=== PATIENT | female | born 1930 | race Caucasian/White ===

== ENCOUNTER 2017-02-05 19:15 | Inpatient (IN) ==
[2017-02-05] MEDS ORDERED: 0.9 % SODIUM CHLORIDE 1,000 ML IV ONE ×2 (20:20→21:47)
[2017-02-05 20:49] LABS: Basophils # (Auto) 0 K/mcL (0.0-0.3); Basophils % (Auto) 0 % (0.0-2.0); Eosinophils # (Auto) 0 K/mcL (0.0-0.7); Eosinophils % (Auto) 0.2 % (0.0-7.0); Lymphocytes # (Auto) 0.8 K/mcL (1.5-4.8); Lymphocytes % (Auto) 3.9 % (15.5-49.0); Mean Cell Volume 88.8 fL (80.0-100.0); Mean Corpuscular HGB Conc 33.4 g/dL (31.0-36.0); Mean Corpuscular Hemoglobin 29.7 pg (26.0-34.0); Monocytes # (Auto) 0.4 K/mcL (0.1-0.9); Monocytes % (Auto) 1.9 % (1.0-12.0); Platelet Count 269 K/mcL (140-440); RBC 4.47 M/mcL (4.00-5.20); Red Cell Distribution Width 15.5 % (11.5-14.5)
[2017-02-05 21:09] LABS: ALT/SGPT 14 U/l (0-40); Albumin/Globulin Ratio 1.2 (1.0-2.3); Alkaline Phosphatase 35 U/L (39-117); Blood Urea Nitrogen 23 mg/dl (8-23)
[2017-02-05] MEDS ORDERED: ONDANSETRON 4 MG/2 ML VIAL ONE ×2 (21:14→21:15)
[2017-02-05] MEDS ORDERED: HYDROmorphone 2 MG/ML SYRINGE ONE (21:14)
[2017-02-05] MEDS ORDERED: HYDROmorphone 2 MG/ML SYRINGE IV ONE (21:15)
[2017-02-05] MEDS ORDERED: ACETAMINOPHEN 325 MG TABLET PO ONE (21:15)
[2017-02-05] MEDS ORDERED: PIPERACILLIN SODIUM/TAZOBACTAM 3.375 GM in DEXTROSE 5% IN WATER 50 ML IV ONE (21:33)
[2017-02-05] MEDS ORDERED: PIPERACILLIN SODIUM/TAZOBACTAM 3.375 GM VIAL IV ONE (21:45)
[2017-02-05 22:12] LABS: Appearance,Urine HAZY; Bacteria,Urine MANY /hpf (0); Bilirubin,Urine NEG (NEG); Color,Urine AMBER; Glucose,Urine (UA) NEGATIVE (NEG); Leukocyte Esterase,Urine 75 /uL (NEG); Mucus,Urine MOD /hpf (0); Nitrate,Urine NEG (NEG); Protein,Urine 100 mg/dL (NEG); Specific Gravity,Urine 1.017 (1.000-1.035); Urine Blood 0.2 mg/dL (<0.03); Urine Budding Yeast FEW /hpf (0); Urine Hyaline Cast 12 /lpf (0-2); Urine RBC 7 /hpf (0-1); Urine Squamous Epithelial Cell 1 /hpf (0-4); Urine Transitional Epi Cells 1 /hpf (0-2); Urine WBC 46 /hpf (0-4)
[2017-02-05] MEDS ORDERED: HYDROmorphone 2 MG/ML SYRINGE IV PRN (22:30)
--- NOTE | 2017-02-05 23:03 | General Surg History&Physical ---
History of Present Illness Patient information: Note initiated : 02/05/17 at 11:02 pm Service Date, if different from initiated Date: [] Patient: Ines Russell 87 y/o F admitted on for Abd cramping, weakness. Chief Complaint: [] HPI: Ms. Russell is a 87 year old F who is visiting from [place]. She had acute onset of lower abdominal pain on Wednesday with associated nausea. The pain initially was in her left lower quadrant and spread throughout her abdomen. She became much worse on and she developed some diarrhea. She took Pepto-Bismol and the diarrhea ceased. Nausea persisted but she did not have any vomiting and she has not had rectal bleeding. She was seen in the emergency room with a temperature of 101.[address] of the abdomen shows sigmoid colon diverticulitis with a small microperforation and small amount of pericolonic fluid without abscess formation. She is admitted and will be treated with antibiotics. She will have follow-up CT in 3 days as long as she improves. If she worsens she will have urgent segmental colectomy with colostomy. Patient is informed of this and she agrees. Review of Systems - Constitutional fever(s), headache(s), night sweats, weight loss - EENT Nose, mouth and throat: abnormal hearing, disequilibrium, dizziness, no headache (s) - Cardiovascular dyspnea on exertion, no chest pain at rest, no chest pain with activity, no palpatations, no rapid heart rate, no syncope - Respiratory no cough, no dyspnea, no wheezing, no pain on inspirtation, no chest congestion - Gastrointestinal abdominal pain, change in stool character, nausea, no heartburn, no hematochezia , no vomiting - Genitourinary Genitourinary: nocturia, urinary incontinence, no dysuria - Musculoskeletal arthralgias, back pain, joint swelling, radiating pain into limb, no muscle weakness - Integumentary no changing lesions, no new lesions, no pruritus, no rash - Neurological abnormal gait, no confusion, no dizziness, no headache(s), no syncope, no weakness - Psychiatric no anxiety, no confusion, no depression - Endocrine fatigue, no palpitations, no polydipsia, no polyuria - Hematologic/Lymphatic no easy bleeding, no easy bruising, no lymphadenopathy - Allergic/Immunologic no tongue swelling, no throat swelling, no uticaria, no wheezing, no lip swelling Past History Past medical history: Diabetes mellitus type 2 Degenerative joint disease Hypertension Past surgical history: Eye surgery for macular degeneration Parathyroidectomy Past family history: Not applicable Past social history: Visiting from [place] Smokes one third pack of cigarettes per day Denies alcohol use Denies drug use Medications and Allergies Home Medications Medication Instructions Recorded Confirmed Type Alendronate Sodium [Fosamax] 70 mg PO WEEKLY 02/05/17 02/05/17 History Allopurinol [Zylopriim] 300 mg PO DAILY 02/05/17 02/05/17 History Aspirin [Lizette Chewable Aspirin] 81 mg PO DAILY 02/05/17 02/05/17 History Atorvastatin [Lipitor] 10 mg PO HS 02/05/17 02/05/17 History Calcium Carbonate [Tums] 1,000 mg CHEWED TID 02/05/17 02/05/17 History Enalapril/Hydrochlorothiazide 1 tablet PO DAILY 02/05/17 02/05/17 History [Enalapril-Hctz 10-25 mg Tablet] Ergocalciferol (Vitamin D2) 2,000 unit PO DAILY 02/05/17 02/05/17 History [Vitamin D2] Fenofibrate [Lipofen] 160 mg PO DAILY 02/05/17 02/05/17 History Multivitamin [Multi-Day Vitamins] 1 each PO DAILY 02/05/17 02/05/17 History Naproxen (Pp) [Aleve (Pp)] 220 mg PO QIDP PRN 02/05/17 02/05/17 History amLODIPine [Norvasc] 10 mg PO DAILY 02/05/17 02/05/17 History metFORMIN HCL [Glucophage] 500 mg PO TID 02/05/17 02/05/17 History Allergies Allergy/AdvReac Type Severity Reaction Status Date / Time No Known Drug Allergies Allergy Unverified 02/05/17 19:16 Exam Temp Pulse Resp BP Pulse Ox 98.4 F 80 26 H 142/98 94 02/05/17 22:24 02/05/17 22:55 02/05/17 22:55 02/05/17 21:32 02/05/17 22:55 - General physical appearance well developed, well nourished, no distress, moderate distress, moderate pain - Eyes PERRL, normal ocular movement - ENT normal pinna, normal nares, normal mucosa, no hearing loss, no congestion, decreased hearing, other (Bilateral hearing aids) - Head Head exam IM: Present: atraumatic, normal inspection, normocephalic - Neck no masses, no bruits, trachea midline, no lymphadectomy, no venous distension - Cardiovascular Cardiovascular exam IM: Present: irregular rhythm, +S1, +S2, tachycardia. Absent: JVD - Respiratory normal expansion, normal respiratory effort, clear to percussion, clear to auscultation - Abdomen Abdomen: Present: soft, non tender, bowel sounds, distended (Distended abdomen with normal active bowel sounds; diffuse tenderness of lower abdomen; much more prominent in left lower quadrant with guarding and rebound; no upper abdominal masses) Hernia: Present: none - Genitourinary Present: normal external genitalia - Integumentary Present: no rash, no growths, no abnormal pigmentation - Neurologic Present: normal coordination, normal sensation - Musculoskeletal Present: normal gait, normal posture - Psychiatric Present: oriented to time, oriented to person, oriented to place, speech is normal, memory intact Assessment and Plan (1) Acute diverticulitis of intestine Zosyn 3.375 g IV every 6 hours Flagyl 500 mg IV every 6 hours N.p.o. except for ice chips IV analgesics as needed to control pain Follow-up CT on Wednesday if patient continues to improve Urgent laparotomy with sigmoid colon resection and colostomy if symptoms worsen Status: Acute (2) Hypertension Hold antihypertensives unless patient develops significant hypertension. Status: Acute (3) Diabetes mellitus type 2 in obese Routine Accu-Cheks with sliding scale Humalog coverage every 6 hours Hold metformin at this time Status: Acute
[2017-02-05] MEDS ORDERED: ONDANSETRON 4 MG/2 ML VIAL IV PRN (23:48)
[2017-02-06] MEDS: 0.9 % SODIUM CHLORIDE 1,000 ML IV SCH ×2 (00:05→21:55)
[2017-02-06] MEDS: PIPERACILLIN SODIUM/TAZOBACTAM 3.375 GM in DEXTROSE 5% IN WATER 50 ML IV SCH ×2 (00:47→06:06)
[2017-02-06] MEDS ORDERED: PIPERACILLIN SODIUM/TAZOBACTAM 3.375 GM VIAL IV ONE ×2 (02:07→05:19)
[2017-02-06] MEDS: HYDROmorphone 2 MG/ML SYRINGE IV PRN ×3 (02:40→17:23)
[2017-02-06] MEDS ORDERED: HYDROmorphone 2 MG/ML SYRINGE ONE ×2 (02:43→06:05)
[2017-02-06] MEDS: 0.9 % SODIUM CHLORIDE 10 ML SYRINGE IV SCH ×3 (06:06→20:36)
[2017-02-06] MEDS ORDERED: ONDANSETRON 4 MG/2 ML VIAL ONE (06:15)
[2017-02-06 06:17] LABS: Basophils # (Auto) 0 K/mcL (0.0-0.3); Basophils % (Auto) 0.1 % (0.0-2.0); Eosinophils # (Auto) 0.1 K/mcL (0.0-0.7); Eosinophils % (Auto) 0.4 % (0.0-7.0); Granulocytes % (Auto) 92.8 % (38.0-78.0); Lymphocytes # (Auto) 0.6 K/mcL (1.5-4.8); Lymphocytes % (Auto) 3.1 % (15.5-49.0); Mean Cell Volume 92.3 fL (80.0-100.0); Mean Corpuscular HGB Conc 32.8 g/dL (31.0-36.0); Mean Corpuscular Hemoglobin 30.3 pg (26.0-34.0); Monocytes # (Auto) 0.6 K/mcL (0.1-0.9); Monocytes % (Auto) 3.6 % (1.0-12.0); Platelet Count 217 K/mcL (140-440); RBC 3.72 M/mcL (4.00-5.20); Red Cell Distribution Width 16.4 % (11.5-14.5)
[2017-02-06 07:00] LABS: ALT/SGPT 12 U/l (0-40); Albumin/Globulin Ratio 1.1 (1.0-2.3); Alkaline Phosphatase 29 U/L (39-117); Bilirubin,Direct 0.7 mg/dL (0.0-0.3); Blood Urea Nitrogen 20 mg/dl (8-23); Gamma Glutamyl Transpeptidase 13 U/L (5-36); Magnesium 1.4 mg/dL (1.6-2.5); Uric Acid 3.3 mg/dL (2.5-8.0)
[2017-02-06] MEDS ORDERED: ACETAMINOPHEN 500 MG/50 ML BOTTLE IV PRN (07:08)
--- NOTE | 2017-02-06 12:13 | XRay Report ---
CLINICAL INFORMATION: Preop COMPARISON: None. FINDINGS: The heart is mildly enlarged. Mediastinum is unremarkable. The pulmonary vessels are mildly distended and the upper lobe regions. Minimal diffuse interstitial edema noted. No infiltrates. No effusions IMPRESSION: Mild CHF or volume overload Interpreted and Authenticated by: Reynaldo Tiwari 02/06/17
[2017-02-06] MEDS ORDERED: DEXTROSE 31 GM ORAL.SUSP PO PRN (13:22)
[2017-02-06] MEDS ORDERED: DEXTROSE 50% 50 ML VIAL IV PRN (13:22)
[2017-02-06] MEDS: PIPERACILLIN SODIUM/TAZOBACTAM 2.25 GM in DEXTROSE 5% IN WATER 50 ML IV SCH ×2 (13:26→17:24)
--- NOTE | 2017-02-06 14:03 | Cat Scan Report ---
CLINICAL INFORMATION: Lower abdominal pain COMPARISON: None. TECHNIQUE: IV contrast was withheld due to elevated creatinine. 2.5 mm helical slices were obtained from the mid heart through the subtrochanteric regions. Following reconstruction, 2.5 mm sagittal, coronal and axial reformatted images were processed and reviewed at bone, lung and soft tissue windows. FINDINGS: Lung bases show no abnormality. No effusion. The visualized heart is minimally enlarged. Images through the abdomen show the noncontrasted liver to be normal. A 17 mm solitary stone in the gallbladder neck. The gallbladder and bile ducts are otherwise normal: CBD is 5 mm. A 4.2 cm cyst in the anterior cortex mid left kidney and a 2.4 cm cyst lateral cortex of the mid right kidney are appreciated. There is mild atrophy of the right kidney and mild compensatory hypertrophy of the left kidney. Both noncontrasted adrenal glands, spleen, pancreas and aorta are normal in size, configuration and attenuation without focal lesion. Images through the pelvis show post menopausal uterus which is normal in size (6 x 4 cm) and leftward position.. Urinary bladder is normal. Severe diverticulitis of a 10 cm segment of mid sigmoid colon is appreciated. Moderate fluid in the right perisigmoid fat with extraluminal gas suggesting perforation with inflamed diverticuli. There is small amounts of free air in the nondependent anterior mesenteric cavity. Bone windows show moderate L2 compression fracture which is likely chronic IMPRESSION: 1. Severe diverticulitis involving a 10 cm segment of mid sigmoid colon. There is moderate free fluid in the right perisigmoid fat with extraluminal air compatible with phlegmon and microperforation. A 11 cm collection of free fluid also noted deep true pelvis. 2. 17 mm solitary stone in the gallbladder. Gallbladder and bile ducts are otherwise normal 3. Moderate L2 compression fracture is likely chronic 4. Abnormality of the right kidney with compensatory hypertrophy of the left kidney Interpreted and Authenticated by: Reynaldo Tiwari 02/06/17
[2017-02-06] MEDS: metroNIDAZOLE 500 MG/100 ML BAG IV SCH ×2 (14:10→18:03)
[2017-02-06] MEDS: INSULIN LISPRO 1 UNIT/0.01 ML UNIT SQ SCH ×2 (17:09→20:36)
[2017-02-07] MEDS: PIPERACILLIN SODIUM/TAZOBACTAM 2.25 GM in DEXTROSE 5% IN WATER 50 ML IV SCH ×4 (00:29→17:34)
[2017-02-07] MEDS: metroNIDAZOLE 500 MG/100 ML BAG IV SCH ×5 (01:30→23:31)
[2017-02-07] MEDS: 0.9 % SODIUM CHLORIDE 10 ML SYRINGE IV SCH ×3 (05:35→20:34)
[2017-02-07 06:27] LABS: Basophils # (Auto) 0 K/mcL (0.0-0.3); Basophils % (Auto) 0 % (0.0-2.0); Eosinophils # (Auto) 0 K/mcL (0.0-0.7); Eosinophils % (Auto) 0.1 % (0.0-7.0); Granulocytes % (Auto) 92.2 % (38.0-78.0); Lymphocytes # (Auto) 0.6 K/mcL (1.5-4.8); Lymphocytes % (Auto) 3.6 % (15.5-49.0); Mean Cell Volume 93.3 fL (80.0-100.0); Mean Corpuscular HGB Conc 32.8 g/dL (31.0-36.0); Mean Corpuscular Hemoglobin 30.6 pg (26.0-34.0); Monocytes # (Auto) 0.7 K/mcL (0.1-0.9); Monocytes % (Auto) 4.1 % (1.0-12.0); Platelet Count 224 K/mcL (140-440); RBC 3.68 M/mcL (4.00-5.20)
[2017-02-07 07:03] LABS: ALT/SGPT 11 U/l (0-40); Albumin 2.6 gm/dL (3.2-5.2); Albumin/Globulin Ratio 0.9 (1.0-2.3); Alkaline Phosphatase 33 U/L (39-117); Bilirubin,Direct 0.5 mg/dL (0.0-0.3); Blood Urea Nitrogen 26 mg/dl (8-23); Gamma Glutamyl Transpeptidase 11 U/L (5-36); Magnesium 1.7 mg/dL (1.6-2.5)
[2017-02-07] MEDS: INSULIN LISPRO 1 UNIT/0.01 ML UNIT SQ SCH ×4 (07:57→20:34)
--- NOTE | 2017-02-07 14:22 | General Surgery Progress Note ---
Subjective Patient reports: feels better, pain is less, flatus, bowel movement, fever Narrative: Note initiated : 02/07/17 at 2:19 pm Service Date, if different from initiated Date: [] Patient: Ines Russell 87 y/o F admitted on 02/05/17 for Abd cramping, weakness. Chief Complaint: [Patient is better. She states that she feels much better than yesterday. She has low-grade temperature elevation and her white blood count is still elevated. She denies nausea. She complains of irritation from her catheter. Her chemistry panel shows elevation of BUN and creatinine. Her urine output has decreased.] Objective Temp Pulse Resp BP Pulse Ox 98.4 F 88 20 131/86 93 02/07/17 11:53 02/07/17 03:44 02/07/17 11:53 02/07/17 11:53 02/07/17 11:53 - Additional Data Intake & Output - Last 24 hours: Intake & Output 02/05/17 02/06/17 02/07/17 02/08/17 05:59 05:59 05:59 05:59 Intake Total 2049 1600 / 1600 250 / 250 Output Total 50 / 50 875 / 875 200 / 200 Balance -1999 725 / 725 50 / 50 Weight 172 lb - General physical appearance other (Mild pain with moderate distention) - Eyes PERRL - ENT no congestion - Neck no venous distension - Respiratory normal respiratory effort, clear to auscultation - Cardiovascular Cardiovascular exam: Present: normal rate and rhythm, RRR, +S1, +S2, tachycardia. Absent: JVD - Abdomen tender (Mild diffuse tenderness of lower abdomen but much less guarding and no rebound.) - Integumentary no rash, no growths, no abnormal pigmentation - Neurologic normal coordination, normal sensation - Psychiatric oriented to time, oriented to person, oriented to place, speech is normal, memory intact - Labs 02/07/17 05:25 02/07/17 05:25 Diabetes panel 02/07/17 Range/Units 05:25 Sodium 141 (133-145) mmol/L Potassium 3.6 (3.3-5.1) mmol/L Chloride 106 (96-108) mmol/L Carbon Dioxide 19 L (22-30) mmol/L BUN 26 H (8-23) mg/dl Creatinine 1.5 H (0.6-1.1) mg/dl Glucose 150 H (70-105) mg/dL Calcium 8.5 L (8.6-10.4) mg/dl AST 12 (0-37) U/l ALT 11 (0-40) U/l Alkaline Phosphatase 33 L (39-117) U/L Total Protein 5.6 L (5.9-8.4) gm/dL Albumin 2.6 L (3.2-5.2) gm/dL Triglycerides 129 (<150) mg/dl Calcium panel 02/07/17 Range/Units 05:25 Calcium 8.5 L (8.6-10.4) mg/dl Phosphorus 2.1 L (2.7-4.5) mg/dL Albumin 2.6 L (3.2-5.2) gm/dL Pituitary panel 02/07/17 Range/Units 05:25 Sodium 141 (133-145) mmol/L Potassium 3.6 (3.3-5.1) mmol/L Chloride 106 (96-108) mmol/L Carbon Dioxide 19 L (22-30) mmol/L BUN 26 H (8-23) mg/dl Creatinine 1.5 H (0.6-1.1) mg/dl Glucose 150 H (70-105) mg/dL Calcium 8.5 L (8.6-10.4) mg/dl Adrenal panel 02/07/17 Range/Units 05:25 Sodium 141 (133-145) mmol/L Potassium 3.6 (3.3-5.1) mmol/L Chloride 106 (96-108) mmol/L Carbon Dioxide 19 L (22-30) mmol/L BUN 26 H (8-23) mg/dl Creatinine 1.5 H (0.6-1.1) mg/dl Glucose 150 H (70-105) mg/dL Calcium 8.5 L (8.6-10.4) mg/dl Total Bilirubin 1.0 (0.0-1.0) mg/dL AST 12 (0-37) U/l ALT 11 (0-40) U/l Alkaline Phosphatase 33 L (39-117) U/L Total Protein 5.6 L (5.9-8.4) gm/dL Albumin 2.6 L (3.2-5.2) gm/dL Assessment and Plan (1) Acute diverticulitis of intestine Status: Acute Assessment and plan: Increase IV fluids 125 cc/h Potassium phosphate [address] of abdomen and pelvis with IV contrast in the morning for follow-up of the inflammatory process in her pelvis Current Visit: Yes (2) Hypertension Status: Acute Assessment and plan: Blood pressures well controlled without addition of antihypertensives Current Visit: Yes (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
[2017-02-07] MEDS: 0.9 % SODIUM CHLORIDE 1,000 ML IV SCH ×2 (15:15→23:00)
[2017-02-07] MEDS ORDERED: POTASSIUM PHOSPHATE 40 MEQ in DEXTROSE 5% IN WATER 500 ML IV ONE ×2 (15:15→20:00)
[2017-02-07 16:06] LABS: ALT/SGPT 10 U/l (0-40); Albumin 2.4 gm/dL (3.2-5.2); Albumin/Globulin Ratio 0.8 (1.0-2.3); Alkaline Phosphatase 31 U/L (39-117); Bilirubin,Direct 0.4 mg/dL (0.0-0.3); Blood Urea Nitrogen 28 mg/dl (8-23); Gamma Glutamyl Transpeptidase 12 U/L (5-36); Magnesium 1.8 mg/dL (1.6-2.5); Uric Acid 4.2 mg/dL (2.5-8.0)
[2017-02-07] MEDS: HYDROmorphone 2 MG/ML SYRINGE IV PRN ×2 (17:33→23:31)
[2017-02-08] MEDS: PIPERACILLIN SODIUM/TAZOBACTAM 2.25 GM in DEXTROSE 5% IN WATER 50 ML IV SCH ×4 (00:35→17:53)
[2017-02-08] MEDS: HYDROmorphone 2 MG/ML SYRINGE IV PRN (04:28)
[2017-02-08] MEDS: 0.9 % SODIUM CHLORIDE 10 ML SYRINGE IV SCH ×3 (06:17→20:27)
[2017-02-08 06:33] LABS: Basophils # (Auto) 0 K/mcL (0.0-0.3); Basophils % (Auto) 0 % (0.0-2.0); Eosinophils # (Auto) 0.2 K/mcL (0.0-0.7); Eosinophils % (Auto) 1.5 % (0.0-7.0); Granulocytes % (Auto) 87.6 % (38.0-78.0); Lymphocytes # (Auto) 0.6 K/mcL (1.5-4.8); Lymphocytes % (Auto) 4.9 % (15.5-49.0); Mean Cell Volume 92.4 fL (80.0-100.0); Mean Corpuscular Hemoglobin 30.5 pg (26.0-34.0); Monocytes # (Auto) 0.8 K/mcL (0.1-0.9); Platelet Count 281 K/mcL (140-440); RBC 3.62 M/mcL (4.00-5.20); Red Cell Distribution Width 16.7 % (11.5-14.5)
[2017-02-08] MEDS: metroNIDAZOLE 500 MG/100 ML BAG IV SCH ×4 (07:00→23:10)
[2017-02-08 07:29] LABS: ALT/SGPT 10 U/l (0-40); Albumin 2.6 gm/dL (3.2-5.2); Albumin/Globulin Ratio 0.9 (1.0-2.3); Alkaline Phosphatase 52 U/L (39-117); Bilirubin,Direct 0.3 mg/dL (0.0-0.3); Blood Urea Nitrogen 24 mg/dl (8-23); Gamma Glutamyl Transpeptidase 13 U/L (5-36); Magnesium 1.7 mg/dL (1.6-2.5); Uric Acid 4.4 mg/dL (2.5-8.0)
[2017-02-08] MEDS: INSULIN LISPRO 1 UNIT/0.01 ML UNIT SQ SCH ×4 (08:07→20:26)
[2017-02-08] MEDS ORDERED: IOPAMIDOL 100 ML BOTTLE IV ONE (08:46)
--- NOTE | 2017-02-08 09:05 | Cat Scan Report ---
CLINICAL INFORMATION: Reason for Exam:follow-up of diverticular abscess. COMPARISON: 02/05/17 TECHNIQUE: Following oral contrast and the injection of intravenous contrast the patient was scanned during the portal venous phase from the diaphragm through the symphysis pubis. Sagittal and coronal reformats were created.. FINDINGS: The lung bases are clear. The liver and spleen are normal in size and homogeneous. There is a 2 cm stone in the fundus the gallbladder. The meza not thickened or inflamed and the bile ducts are nondilated. There is no mass or inflammation the pancreas. The adrenals are normal and symmetric. There are cysts in both kidneys. There is atrophy of the right kidney. No kidney stone or hydronephrosis are present in either kidney. Aorta is normal in caliber. There is a moderate amount plaque in the arteries throughout the abdomen and pelvis. Oral contrast passes through noninflamed small intestine to the distal ileum without obstruction. Some of the loops of proximal jejunum are borderline dilated. There is no abnormal distention of the colon. Patient still has acute diverticulitis of the mid to distal sigmoid colon. Adjacent to this inflamed segment of bowel there are loculated pockets of extraluminal gas and stranding of the adjacent fat. There is no significant abscess cavity. This has remained stable since 02/05/17. Patient still has ascites in the abdomen and pelvis. There is more fluid in the upper abdomen today than was previously area IMPRESSION: Stable acute diverticulitis with evidence of perforation and a phlegmon in the mid to distal sigmoid. Interpreted and Authenticated by: Edmundo Jarrett 02/08/17
[2017-02-08] MEDS: 0.9 % SODIUM CHLORIDE 1,000 ML IV SCH ×3 (11:00→22:15)
--- NOTE | 2017-02-08 16:55 | General Surgery Progress Note ---
Subjective Patient reports: feels better, pain is less, flatus, bowel movement, fever Narrative: Note initiated : 02/08/17 at 4:52 pm Service Date, if different from initiated Date: [] Patient: Ines Russell 87 y/o F admitted on 02/05/17 for Abd Cramping, Weakness/Diverticulitis. Chief Complaint: [Patient continues to improve. Her pain is much better and her abdominal distention is less. She has had flatus and bowel movement. CT scan shows a stable inflammatory process without significant change since 2016. There is no increase in the free air and there is no increase in the volume of fluid. There is no organized abscess. She has some fluid in her gutters but this may be related to her almost constant supine position. Her white blood count is down to 12.8.] Objective Temp Pulse Resp BP Pulse Ox 98.5 F 85 20 125/79 97 02/08/17 15:41 02/08/17 12:00 02/08/17 15:41 02/08/17 15:41 02/08/17 15:41 - Additional Data Intake & Output - Last 24 hours: Intake & Output 02/06/17 02/07/17 02/08/17 02/09/17 05:59 05:59 05:59 05:59 Intake Total 2049 1600 / 1600 1056 / 1056 1345 / 1345 Output Total 50 / 50 875 / 875 900 / 900 325 / 325 Balance -1999 725 / 725 156 / 156 1020 / 1020 Weight 172 lb 166 lb 166 lb - General physical appearance no distress, moderate pain - Eyes PERRL - ENT no congestion - Neck no venous distension - Respiratory normal respiratory effort, clear to auscultation - Cardiovascular Cardiovascular exam: Present: normal rate and rhythm, RRR, +S1, +S2. Absent: JVD - Abdomen soft, tender, bowel sounds (She has good bowel sounds and her distention is less. She has moderate tenderness but significantly improved from yesterday. She does not have guarding) - Integumentary no rash, no growths, no abnormal pigmentation - Neurologic normal coordination, normal sensation - Musculoskeletal other - Psychiatric oriented to time, oriented to person, oriented to place, speech is normal, memory intact - Labs 02/08/17 05:16 02/08/17 05:16 Diabetes panel 02/08/17 Range/Units 05:16 Sodium 139 (133-145) mmol/L Potassium 3.7 (3.3-5.1) mmol/L Chloride 106 (96-108) mmol/L Carbon Dioxide 18 L (22-30) mmol/L BUN 24 H (8-23) mg/dl Creatinine 1.1 (0.6-1.1) mg/dl Glucose 179 H (70-105) mg/dL Calcium 7.9 L (8.6-10.4) mg/dl AST 10 (0-37) U/l ALT 10 (0-40) U/l Alkaline Phosphatase 52 (39-117) U/L Total Protein 5.4 L (5.9-8.4) gm/dL Albumin 2.6 L (3.2-5.2) gm/dL Triglycerides 126 (<150) mg/dl Calcium panel 02/08/17 Range/Units 05:16 Calcium 7.9 L (8.6-10.4) mg/dl Phosphorus 4.0 (2.7-4.5) mg/dL Albumin 2.6 L (3.2-5.2) gm/dL Pituitary panel 02/08/17 Range/Units 05:16 Sodium 139 (133-145) mmol/L Potassium 3.7 (3.3-5.1) mmol/L Chloride 106 (96-108) mmol/L Carbon Dioxide 18 L (22-30) mmol/L BUN 24 H (8-23) mg/dl Creatinine 1.1 (0.6-1.1) mg/dl Glucose 179 H (70-105) mg/dL Calcium 7.9 L (8.6-10.4) mg/dl Adrenal panel 02/08/17 Range/Units 05:16 Sodium 139 (133-145) mmol/L Potassium 3.7 (3.3-5.1) mmol/L Chloride 106 (96-108) mmol/L Carbon Dioxide 18 L (22-30) mmol/L BUN 24 H (8-23) mg/dl Creatinine 1.1 (0.6-1.1) mg/dl Glucose 179 H (70-105) mg/dL Calcium 7.9 L (8.6-10.4) mg/dl Total Bilirubin 0.7 (0.0-1.0) mg/dL AST 10 (0-37) U/l ALT 10 (0-40) U/l Alkaline Phosphatase 52 (39-117) U/L Total Protein 5.4 L (5.9-8.4) gm/dL Albumin 2.6 L (3.2-5.2) gm/dL Assessment and Plan (1) Acute diverticulitis of intestine Status: Acute Assessment and plan: Continue present therapy Current Visit: Yes (2) Hypertension Status: Acute Assessment and plan: Blood pressures well controlled without addition of antihypertensives Current Visit: Yes (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
[2017-02-09] MEDS: PIPERACILLIN SODIUM/TAZOBACTAM 2.25 GM in DEXTROSE 5% IN WATER 50 ML IV SCH ×5 (00:13→23:55)
--- NOTE | 2017-02-09 01:08 | Emergency Department Note ---
Abdominal Pain HPI - General Chief Complaint: Abdominal Pain Stated Complaint: Abd cramping, weakness Time Seen by Provider: 02/05/17 20:19 Source: patient Mode of arrival: ambulatory Limitations: no limitations - History of Present Illness HPI Narrative: Note that this note is created retroactively. For unidentified causes or problems or inadvertent deletions, a note was not saved on this date and patient was admitted to the hospital. As I recall, the patient was visiting from [facility], and developed some significant pains in the last several days. On the day of admission her pain had become quite significantly worse as well as feeling quite poorly and not eating well in the past day or 2. She denied constipation or specific diarrhea or hematochezia or melena. She had had some chills but had not checked her temperature I believe. No known history of diverticular disease, cancer, polyps. She has not had vomiting, I believe but some nausea. - Related Data Home Medications Medication Instructions Recorded Confirmed Alendronate Sodium [Fosamax] 70 mg PO WEEKLY 02/05/17 02/05/17 Allopurinol [Zylopriim] 300 mg PO DAILY 02/05/17 02/05/17 Aspirin [Lizette Chewable Aspirin] 81 mg PO DAILY 02/05/17 02/05/17 Atorvastatin [Lipitor] 10 mg PO HS 02/05/17 02/05/17 Calcium Carbonate [Tums] 1,000 mg CHEWED TID 02/05/17 02/05/17 Enalapril/Hydrochlorothiazide 1 tablet PO DAILY 02/05/17 02/05/17 [Enalapril-Hctz 10-25 mg Tablet] Ergocalciferol (Vitamin D2) 2,000 unit PO DAILY 02/05/17 02/05/17 [Vitamin D2] Fenofibrate [Lipofen] 160 mg PO DAILY 02/05/17 02/05/17 Multivitamin [Multi-Day Vitamins] 1 each PO DAILY 02/05/17 02/05/17 Naproxen (Pp) [Aleve (Pp)] 220 mg PO QIDP PRN 02/05/17 02/05/17 amLODIPine [Norvasc] 10 mg PO DAILY 02/05/17 02/05/17 metFORMIN HCL [Glucophage] 500 mg PO TID 02/05/17 02/05/17 Allergies Allergy/AdvReac Type Severity Reaction Status Date / Time No Known Drug Allergies Allergy Unverified 02/05/17 19:16 Review of Systems Review of Systems: I believe she indicated that she did not have passing out episodes but maybe some minor headaches. No specific chest pains or palpitations. No shortness of breath or wheezing. However she does smoke and have some chronic morning coughing. Prior to the onset of her problems mentioned above in the HPI, she did not have problems of nausea, vomiting, diarrhea, constipation, or blood in her stools. No specific problems with urination or dysuria. Minimal or rare swelling of her lower extremities. Abdominal Pain PMH - Past Medical History Medical history: Denies: asthma, atrial fibrillation, CHF, coronary artery disease, CVA, diabetes - Social History Smoking status: Current every day smoker Alcohol use: Reports: None Physical Exam - General Limitations: no limitations General appearance: alert, in no apparent distress, other (moderately uncomfortable to change positions in bed.) - Head Head exam: atraumatic, normocephalic - Eye Eye exam: Present: normal appearance, PERRL - Neck Neck exam: Present: trachea midline. Absent: tenderness, lymphadenopathy - Respiratory Respiratory exam: Present: normal lung sounds bilaterally. Absent: respiratory distress, wheezes, stridor - Cardiovascular Cardiovascular exam: Present: regular rate, normal rhythm - Abdominal Exam Abdominal exam: Present: soft, distention (mildly.), tenderness (moderate tenderness, greatest in the RLQ.), guarding, rebound. Absent: organomegaly - Extremities Exam Extremities exam: Absent: pedal edema - Neurological Exam Neurological exam: Present: alert, oriented X3 - Psychiatric Psychiatric exam: Present: normal affect - Skin Skin exam: Present: warm, dry Course Course Narrative: During the course of her stay in the emergency room, she developed a fever and tachycardia. Her abdominal pain was rather significant to severe and CT scan was obtained which demonstrated diverticulitis with a rupture and probable abscess. She was given antibiotics and was transferred to inpatient care after consultation with general surgeon. She met the criteria for SIRS based on these findings and concerns. Vital Signs Temperature 98.4 F 02/05/17 19:16 Pulse Rate 115 H 02/05/17 19:16 Respiratory Rate 17 02/05/17 19:16 Blood Pressure 116/68 02/05/17 19:16 Pulse Oximetry (%) 97 02/05/17 19:16 Temperature 97.5 F 02/09/17 00:00 Pulse Rate 86 02/09/17 00:00 Respiratory Rate 20 02/09/17 00:00 Blood Pressure 145/75 02/09/17 00:00 Pulse Oximetry (%) 97 02/09/17 00:00 Abdominal Pain - Lab Data Result diagrams: 02/08/17 05:16 02/08/17 05:16 Lab Results 02/05/17 02/05/17 02/05/17 Range/Units 20:15 20:15 20:15 WBC 20.3 H (4.5-11.0) K/mcL RBC 4.47 (4.00-5.20) M/mcL Hgb 13.3 (12.0-15.0) g/dL Hct 39.7 (36.0-48.0) % POC Hct (36.0-48.0) % MCV 88.8 (80.0-100.0) fL MCH 29.7 (26.0-34.0) pg MCHC 33.4 (31.0-36.0) g/dL RDW 15.5 H (11.5-14.5) % Plt Count 269 (140-440) K/mcL MPV 8.4 (7.4-10.4) fL Gran % 94.0 H (38.0-78.0) % Lymph % (Auto) 3.9 L (15.5-49.0) % [place] % (Auto) 1.9 (1.0-12.0) % Eos % (Auto) 0.2 (0.0-7.0) % Baso % (Auto) 0 (0.0-2.0) % Gran # 19.1 H (1.8-8.0) K/mcL Lymph # (Auto) 0.8 L (1.5-4.8) K/mcL [place] # (Auto) 0.4 (0.1-0.9) K/mcL Eos # (Auto) 0 (0.0-0.7) K/mcL Baso # (Auto) 0 (0.0-0.3) K/mcL PT (11.9-14.5) sec INR (0.9-1.1) VBG Lactic Acid TNP POC Sodium (133-145) mmol/L Sodium TNP POC Potassium (3.3-5.1) mmol/L Potassium TNP POC Chloride (96-108) mmol/L Chloride TNP Carbon Dioxide TNP POC Total CO2 (22-30) mmol/L Anion Gap TNP POC BUN (8-23) mg/dl BUN TNP Creatinine TNP POC Creatinine (0.6-1.1) mg/dl GFR Calculation TNP Glucose TNP POC Glucose (70-105) mg/dL Calcium TNP POC WB Ioniz Calcium (1.16-1.32) mmol/L Total Bilirubin TNP AST TNP ALT TNP Alkaline Phosphatase TNP C-Reactive Protein (0.0-0.8) mg/dl Total Protein TNP Albumin TNP Globulin TNP Albumin/Globulin Ratio TNP Procalcitonin (<0.10) ng/mL Urine Color Urine Appearance Urine pH (5.0-9.0) Ur Specific [place] (1.000-1.035) Urine Protein (NEG) mg/dL Urine Glucose (UA) (NEG) mg/dL Urine Ketones (NEG) mg/dL Urine Occult Blood (<0.03) mg/dL Urine Nitrate (NEG) Urine Bilirubin (NEG) mg/dL Urine Urobilinogen (NEG) mg/dL Ur Leukocyte Esterase (NEG) /uL Urine RBC (0-1) /hpf Urine WBC (0-4) /hpf Ur Squamous Epith Cells (0-4) /hpf Ur Transition Epith Cell (0-2) /hpf Urine Bacteria (0) /hpf Hyaline Casts (0-2) /lpf Urine Mucus (0) /hpf Urine Yeast (Budding) (0) /hpf Ur Culture Indicated? Acetaminophen (10.0-30.0) mcg/ml 02/05/17 02/05/17 02/05/17 Range/Units 20:15 20:15 20:15 WBC TNP (4.5-11.0) K/mcL RBC TNP (4.00-5.20) M/mcL Hgb TNP (12.0-15.0) g/dL Hct TNP (36.0-48.0) % POC Hct (36.0-48.0) % MCV TNP (80.0-100.0) fL MCH TNP (26.0-34.0) pg MCHC TNP (31.0-36.0) g/dL RDW TNP (11.5-14.5) % Plt Count TNP (140-440) K/mcL MPV TNP (7.4-10.4) fL Gran % (38.0-78.0) % Lymph % (Auto) (15.5-49.0) % [place] % (Auto) (1.0-12.0) % Eos % (Auto) (0.0-7.0) % Baso % (Auto) (0.0-2.0) % Gran # (1.8-8.0) K/mcL Lymph # (Auto) (1.5-4.8) K/mcL [place] # (Auto) (0.1-0.9) K/mcL Eos # (Auto) (0.0-0.7) K/mcL Baso # (Auto) (0.0-0.3) K/mcL PT 15.0 H (11.9-14.5) sec INR 1.2 H (0.9-1.1) VBG Lactic Acid POC Sodium (133-145) mmol/L Sodium 136 POC Potassium (3.3-5.1) mmol/L Potassium 3.4 POC Chloride (96-108) mmol/L Chloride 98 Carbon Dioxide 19 L POC Total CO2 (22-30) mmol/L Anion Gap 19.0 H POC BUN (8-23) mg/dl BUN 23 Creatinine 1.4 H POC Creatinine (0.6-1.1) mg/dl GFR Calculation 34 Glucose 191 H POC Glucose (70-105) mg/dL Calcium 10.0 POC WB Ioniz Calcium (1.16-1.32) mmol/L Total Bilirubin 1.5 H AST 17 ALT 14 Alkaline Phosphatase 35 L C-Reactive Protein 30.0 H (0.0-0.8) mg/dl Total Protein 7.4 Albumin 4.0 Globulin 3.4 Albumin/Globulin Ratio 1.2 Procalcitonin (<0.10) ng/mL Urine Color Urine Appearance Urine pH (5.0-9.0) Ur Specific [place] (1.000-1.035) Urine Protein (NEG) mg/dL Urine Glucose (UA) (NEG) mg/dL Urine Ketones (NEG) mg/dL Urine Occult Blood (<0.03) mg/dL Urine Nitrate (NEG) Urine Bilirubin (NEG) mg/dL Urine Urobilinogen (NEG) mg/dL Ur Leukocyte Esterase (NEG) /uL Urine RBC (0-1) /hpf Urine WBC (0-4) /hpf Ur Squamous Epith Cells (0-4) /hpf Ur Transition Epith Cell (0-2) /hpf Urine Bacteria (0) /hpf Hyaline Casts (0-2) /lpf Urine Mucus (0) /hpf Urine Yeast (Budding) (0) /hpf Ur Culture Indicated? Acetaminophen (10.0-30.0) mcg/ml 02/05/17 02/05/17 02/05/17 Range/Units 20:15 20:15 20:39 WBC (4.5-11.0) K/mcL RBC (4.00-5.20) M/mcL Hgb (12.0-15.0) g/dL Hct (36.0-48.0) % POC Hct 34.0 L (36.0-48.0) % MCV (80.0-100.0) fL MCH (26.0-34.0) pg MCHC (31.0-36.0) g/dL RDW (11.5-14.5) % Plt Count (140-440) K/mcL MPV (7.4-10.4) fL Gran % (38.0-78.0) % Lymph % (Auto) (15.5-49.0) % [place] % (Auto) (1.0-12.0) % Eos % (Auto) (0.0-7.0) % Baso % (Auto) (0.0-2.0) % Gran # (1.8-8.0) K/mcL Lymph # (Auto) (1.5-4.8) K/mcL [place] # (Auto) (0.1-0.9) K/mcL Eos # (Auto) (0.0-0.7) K/mcL Baso # (Auto) (0.0-0.3) K/mcL PT (11.9-14.5) sec INR (0.9-1.1) VBG Lactic Acid POC Sodium 138 (133-145) mmol/L Sodium POC Potassium 3.5 (3.3-5.1) mmol/L Potassium POC Chloride 105 (96-108) mmol/L Chloride Carbon Dioxide POC Total CO2 20 L (22-30) mmol/L Anion Gap POC BUN 22 (8-23) mg/dl BUN Creatinine POC Creatinine 1.4 H (0.6-1.1) mg/dl GFR Calculation Glucose POC Glucose 192 H (70-105) mg/dL Calcium POC WB Ioniz Calcium 1.13 L (1.16-1.32) mmol/L Total Bilirubin AST ALT Alkaline Phosphatase C-Reactive Protein (0.0-0.8) mg/dl Total Protein Albumin Globulin Albumin/Globulin Ratio Procalcitonin 2.04 (<0.10) ng/mL Urine Color Urine Appearance Urine pH (5.0-9.0) Ur Specific [place] (1.000-1.035) Urine Protein (NEG) mg/dL Urine Glucose (UA) (NEG) mg/dL Urine Ketones (NEG) mg/dL Urine Occult Blood (<0.03) mg/dL Urine Nitrate (NEG) Urine Bilirubin (NEG) mg/dL Urine Urobilinogen (NEG) mg/dL Ur Leukocyte Esterase (NEG) /uL Urine RBC (0-1) /hpf Urine WBC (0-4) /hpf Ur Squamous Epith Cells (0-4) /hpf Ur Transition Epith Cell (0-2) /hpf Urine Bacteria (0) /hpf Hyaline Casts (0-2) /lpf Urine Mucus (0) /hpf Urine Yeast (Budding) (0) /hpf Ur Culture Indicated? Acetaminophen < 5.0 L (10.0-30.0) mcg/ml 02/05/17 02/05/17 Range/Units 21:00 21:00 WBC (4.5-11.0) K/mcL RBC (4.00-5.20) M/mcL Hgb (12.0-15.0) g/dL Hct (36.0-48.0) % POC Hct (36.0-48.0) % MCV (80.0-100.0) fL MCH (26.0-34.0) pg MCHC (31.0-36.0) g/dL RDW (11.5-14.5) % Plt Count (140-440) K/mcL MPV (7.4-10.4) fL Gran % (38.0-78.0) % Lymph % (Auto) (15.5-49.0) % [place] % (Auto) (1.0-12.0) % Eos % (Auto) (0.0-7.0) % Baso % (Auto) (0.0-2.0) % Gran # (1.8-8.0) K/mcL Lymph # (Auto) (1.5-4.8) K/mcL [place] # (Auto) (0.1-0.9) K/mcL Eos # (Auto) (0.0-0.7) K/mcL Baso # (Auto) (0.0-0.3) K/mcL PT (11.9-14.5) sec INR (0.9-1.1) VBG Lactic Acid 1.0 POC Sodium (133-145) mmol/L Sodium POC Potassium (3.3-5.1) mmol/L Potassium POC Chloride (96-108) mmol/L Chloride Carbon Dioxide POC Total CO2 (22-30) mmol/L Anion Gap POC BUN (8-23) mg/dl BUN Creatinine POC Creatinine (0.6-1.1) mg/dl GFR Calculation Glucose POC Glucose (70-105) mg/dL Calcium POC WB Ioniz Calcium (1.16-1.32) mmol/L Total Bilirubin AST ALT Alkaline Phosphatase C-Reactive Protein (0.0-0.8) mg/dl Total Protein Albumin Globulin Albumin/Globulin Ratio Procalcitonin (<0.10) ng/mL Urine Color Meme Urine Appearance Hazy Urine pH 5.0 (5.0-9.0) Ur Specific [place] 1.017 (1.000-1.035) Urine Protein 100 A (NEG) mg/dL Urine Glucose (UA) Negative (NEG) mg/dL Urine Ketones Neg (NEG) mg/dL Urine Occult Blood 0.2 A (<0.03) mg/dL Urine Nitrate Neg (NEG) Urine Bilirubin Neg (NEG) mg/dL Urine Urobilinogen 4.0 A (NEG) mg/dL Ur Leukocyte Esterase 75 A (NEG) /uL Urine RBC 7 H (0-1) /hpf Urine WBC 46 H (0-4) /hpf Ur Squamous Epith Cells 1 (0-4) /hpf Ur Transition Epith Cell 1 (0-2) /hpf Urine Bacteria Many A (0) /hpf Hyaline Casts 12 H (0-2) /lpf Urine Mucus Mod (0) /hpf Urine Yeast (Budding) Few A (0) /hpf Ur Culture Indicated? Yes Acetaminophen (10.0-30.0) mcg/ml Disposition Pt seen by [employer]/PA only: No Clinical Impression: Abdominal abscess, SIRS (systemic inflammatory response syndrome) Diverticulitis Qualifiers: Diverticulitis site: large intestine Diverticulitis bleeding: without bleeding Diverticulitis complication: with abscess Qualified Code(s): K57.20 - Diverticulitis of large intestine with perforation and abscess without bleeding Disposition: Xfer As Inpt ([facility]) Condition: Fair
[2017-02-09] MEDS: 0.9 % SODIUM CHLORIDE 10 ML SYRINGE IV SCH ×3 (05:29→22:41)
[2017-02-09] MEDS: metroNIDAZOLE 500 MG/100 ML BAG IV SCH ×3 (06:15→19:09)
[2017-02-09 06:55] LABS: Basophils # (Auto) 0 K/mcL (0.0-0.3); Basophils % (Auto) 0 % (0.0-2.0); Eosinophils # (Auto) 0.2 K/mcL (0.0-0.7); Eosinophils % (Auto) 1.8 % (0.0-7.0); Lymphocytes # (Auto) 0.7 K/mcL (1.5-4.8); Lymphocytes % (Auto) 6.6 % (15.5-49.0); Mean Cell Volume 91.4 fL (80.0-100.0); Mean Corpuscular HGB Conc 33.3 g/dL (31.0-36.0); Mean Corpuscular Hemoglobin 30.4 pg (26.0-34.0); Monocytes # (Auto) 0.7 K/mcL (0.1-0.9); Monocytes % (Auto) 6.6 % (1.0-12.0); Platelet Count 319 K/mcL (140-440); Red Cell Distribution Width 16.2 % (11.5-14.5)
[2017-02-09 07:39] LABS: ALT/SGPT 10 U/l (0-40); Albumin 2.6 gm/dL (3.2-5.2); Alkaline Phosphatase 30 U/L (39-117); Bilirubin,Direct 0.3 mg/dL (0.0-0.3); Blood Urea Nitrogen 16 mg/dl (8-23); Gamma Glutamyl Transpeptidase 11 U/L (5-36); Magnesium 1.7 mg/dL (1.6-2.5)
[2017-02-09] MEDS: INSULIN LISPRO 1 UNIT/0.01 ML UNIT SQ SCH ×4 (08:27→20:36)
[2017-02-09] MEDS: 0.9 % SODIUM CHLORIDE 1,000 ML IV SCH ×4 (08:28→22:41)
--- NOTE | 2017-02-09 13:37 | General Surgery Progress Note ---
Subjective Patient reports: feels better, pain is less, tolerating liquids well, flatus, bowel movement, afebrile Narrative: Note initiated : 02/09/17 at 1:35 pm Service Date, if different from initiated Date: [] Patient: Ines Russell 87 y/o F admitted on 02/05/17 for Abd Cramping, Weakness/Diverticulitis. Chief Complaint: [Patient continues to improve. She has minimal pain at this time. She denies nausea and is tolerating her liquid diet. She is having some liquid stools and passing flatus. Her abdominal distention has resolved. Her white blood count has returned to normal.] Objective Temp Pulse Resp BP Pulse Ox 97.9 F 82 20 110/65 97 02/09/17 12:00 02/09/17 04:00 02/09/17 12:00 02/09/17 12:00 02/09/17 12:00 - Additional Data Intake & Output - Last 24 hours: Intake & Output 02/07/17 02/08/17 02/09/17 02/10/17 05:59 05:59 05:59 05:59 Intake Total 1600 / 1600 1056 / 1056 2870 / 2870 1100 / 1100 Output Total 875 / 875 900 / 900 1600 / 1600 Balance 725 / 725 156 / 156 1270 / 1270 1100 / 1100 Weight 172 lb 166 lb 168 lb 8 oz - ENT no congestion - Neck no venous distension - Respiratory clear to auscultation - Cardiovascular Cardiovascular exam: Present: normal rate and rhythm, RRR, +S1, +S2. Absent: JVD - Abdomen soft, non tender, bowel sounds (Abdomen is benign and soft with good active bowel sounds. There is minimal tenderness at this time) - Integumentary no rash, no growths, no abnormal pigmentation - Neurologic normal coordination, normal sensation - Musculoskeletal normal gait, normal posture - Psychiatric oriented to time, oriented to person, oriented to place, speech is normal, memory intact - Labs 02/09/17 05:58 02/09/17 05:58 Diabetes panel 02/09/17 Range/Units 05:58 Sodium 142 (133-145) mmol/L Potassium 3.0 L (3.3-5.1) mmol/L Chloride 111 H (96-108) mmol/L Carbon Dioxide 18 L (22-30) mmol/L BUN 16 (8-23) mg/dl Creatinine 0.9 (0.6-1.1) mg/dl Glucose 120 H (70-105) mg/dL Calcium 7.6 L (8.6-10.4) mg/dl AST 11 (0-37) U/l ALT 10 (0-40) U/l Alkaline Phosphatase 30 L (39-117) U/L Total Protein 5.2 L (5.9-8.4) gm/dL Albumin 2.6 L (3.2-5.2) gm/dL Triglycerides 117 (<150) mg/dl Calcium panel 02/09/17 Range/Units 05:58 Calcium 7.6 L (8.6-10.4) mg/dl Phosphorus 1.7 L (2.7-4.5) mg/dL Albumin 2.6 L (3.2-5.2) gm/dL Pituitary panel 02/09/17 Range/Units 05:58 Sodium 142 (133-145) mmol/L Potassium 3.0 L (3.3-5.1) mmol/L Chloride 111 H (96-108) mmol/L Carbon Dioxide 18 L (22-30) mmol/L BUN 16 (8-23) mg/dl Creatinine 0.9 (0.6-1.1) mg/dl Glucose 120 H (70-105) mg/dL Calcium 7.6 L (8.6-10.4) mg/dl Adrenal panel 02/09/17 Range/Units 05:58 Sodium 142 (133-145) mmol/L Potassium 3.0 L (3.3-5.1) mmol/L Chloride 111 H (96-108) mmol/L Carbon Dioxide 18 L (22-30) mmol/L BUN 16 (8-23) mg/dl Creatinine 0.9 (0.6-1.1) mg/dl Glucose 120 H (70-105) mg/dL Calcium 7.6 L (8.6-10.4) mg/dl Total Bilirubin 0.5 (0.0-1.0) mg/dL AST 11 (0-37) U/l ALT 10 (0-40) U/l Alkaline Phosphatase 30 L (39-117) U/L Total Protein 5.2 L (5.9-8.4) gm/dL Albumin 2.6 L (3.2-5.2) gm/dL Assessment and Plan (1) Acute diverticulitis of intestine Status: Acute Assessment and plan: Continue present therapy Replace phosphorus Discontinue Moon catheter Advance to soft diet Possible discharge in the morning Current Visit: Yes (2) Hypertension Status: Acute Assessment and plan: Blood pressures well controlled without addition of antihypertensives Current Visit: Yes (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
[2017-02-09] MEDS: POTASSIUM PHOSPHATE 40 MEQ in DEXTROSE 5% IN WATER 500 ML IV SCH ×2 (14:52→19:40)
[2017-02-10] MEDS: metroNIDAZOLE 500 MG/100 ML BAG IV SCH ×3 (00:37→12:46)
[2017-02-10] MEDS: PIPERACILLIN SODIUM/TAZOBACTAM 2.25 GM in DEXTROSE 5% IN WATER 50 ML IV SCH ×2 (05:26→11:53)
[2017-02-10] MEDS: 0.9 % SODIUM CHLORIDE 1,000 ML IV SCH (05:26)
[2017-02-10] MEDS: 0.9 % SODIUM CHLORIDE 10 ML SYRINGE IV SCH ×2 (05:26→12:46)
[2017-02-10 07:16] LABS: Basophils # (Auto) 0 K/mcL (0.0-0.3); Basophils % (Auto) 0.2 % (0.0-2.0); Eosinophils # (Auto) 0.2 K/mcL (0.0-0.7); Eosinophils % (Auto) 1.8 % (0.0-7.0); Granulocytes % (Auto) 83.7 % (38.0-78.0); Lymphocytes # (Auto) 0.8 K/mcL (1.5-4.8); Lymphocytes % (Auto) 7.4 % (15.5-49.0); Mean Cell Volume 91.4 fL (80.0-100.0); Mean Corpuscular HGB Conc 33.4 g/dL (31.0-36.0); Mean Corpuscular Hemoglobin 30.5 pg (26.0-34.0); Monocytes # (Auto) 0.8 K/mcL (0.1-0.9); Monocytes % (Auto) 6.9 % (1.0-12.0); Platelet Count 358 K/mcL (140-440); RBC 3.48 M/mcL (4.00-5.20); Red Cell Distribution Width 16.6 % (11.5-14.5)
[2017-02-10 07:39] LABS: ALT/SGPT 10 U/l (0-40); Albumin 2.2 gm/dL (3.2-5.2); Albumin/Globulin Ratio 0.8 (1.0-2.3); Alkaline Phosphatase 27 U/L (39-117); Bilirubin,Direct < 0.2 mg/dL (0.0-0.3); Blood Urea Nitrogen 9 mg/dl (8-23); Gamma Glutamyl Transpeptidase 11 U/L (5-36); Magnesium 1.6 mg/dL (1.6-2.5); Uric Acid 3.2 mg/dL (2.5-8.0)
[2017-02-10] MEDS: INSULIN LISPRO 1 UNIT/0.01 ML UNIT SQ SCH ×2 (07:45→11:52)
--- NOTE | 2017-02-10 10:23 | Discharge Summary ---
Providers - Providers Patient information: Note initiated : 02/10/17 at 10:20 am Service Date, if different from initiated Date: [] Patient: Ines Russell 87 y/o F admitted on 02/05/17 for Abd Cramping, Weakness/Diverticulitis. Chief Complaint: [] Date of admission: 02/05/17 Discharge date: 02/10/17 Attending physician: Marti Samuel Hospitalization Discharge diagnosis: ACUTE DIVERTICULITIS Secondary discharge diagnosis: DIVERTICULAR ABSCESS Reason for admission: ACUTE DIVERTICULITIS Procedures: NONE Pertinent studies/significant findings: CT OF ABDOMEN AND PELVIS X 2 Complications: NONE Exam Temp Pulse Resp BP Pulse Ox 97.2 F 86 20 146/82 96 02/10/17 06:57 02/10/17 03:39 02/10/17 06:57 02/10/17 08:46 02/10/17 06:57 Discharge Plan - Patient/Caregiver Discharge Instructions Activity: increase activity as tolerated Diet: Regular Diet Prescriptions: Levofloxacin [Levaquin] 750 mg PO DAILY #20 tablet metroNIDAZOLE [Flagyl] 500 mg IV Q6H #60 bag - Follow up Plan Disposition: Home, Self-Care Prognosis: Good Rehab Potential: Good I certify that the patient requires SNF services.: No Overall status at discharge: patient is not back to baseline Pending Studies Resuscitation Status Full Code Diet GI Soft/Transitional Start WedFeb 09 Dinner Diagnostic Test (Pha) (Accu-Chek) 1 each FS ACHS FROILAN Last Admin: 02/10/17 07:45 Dose: 1 each Admin: 02/09/17 20:33 Dose: 1 each Admin: 02/09/17 17:09 Dose: 1 each Admin: 02/09/17 11:55 Dose: 1 each Admin: 02/09/17 08:27 Dose: 1 each Admin: 02/08/17 20:26 Dose: 1 each Admin: 02/08/17 17:28 Dose: 1 each Admin: 02/08/17 11:49 Dose: 1 each Admin: 02/08/17 08:06 Dose: 1 each Admin: 02/07/17 20:33 Dose: 1 each Admin: 02/07/17 17:09 Dose: 1 each Admin: 02/07/17 11:32 Dose: 1 each Admin: 02/07/17 07:54 Dose: 1 each Admin: 02/06/17 20:35 Dose: 1 each Admin: 02/06/17 17:09 Dose: 1 each Hydromorphone HCl (Dilaudid) 0.5 mg IV Q2HP PRN PRN Reason: Pain Last Admin: 02/08/17 04:28 Dose: 0.5 mg Admin: 02/07/17 23:31 Dose: 0.5 mg Admin: 02/07/17 17:33 Dose: 0.5 mg Admin: 02/06/17 17:23 Dose: 0.5 mg Admin: 02/06/17 11:51 Dose: 0.5 mg Admin: 02/06/17 02:40 Dose: 0.5 mg Piperacillin Sod/Tazobactam (Sod 2.25 gm/ Dextrose) 50 mls @ 100 mls/hr IV Q6H FROILAN Last Infusion: 02/10/17 05:55 Dose: 100 mls/hr Admin: 02/10/17 05:26 Dose: 100 mls/hr Infusion: 02/10/17 00:25 Dose: 100 mls/hr Admin: 02/09/17 23:55 Dose: 100 mls/hr Infusion: 02/09/17 18:45 Dose: 100 mls/hr Admin: 02/09/17 18:15 Dose: 100 mls/hr Infusion: 02/09/17 12:15 Dose: 100 mls/hr Admin: 02/09/17 11:45 Dose: 100 mls/hr Infusion: 02/09/17 05:50 Dose: 100 mls/hr Admin: 02/09/17 05:20 Dose: 100 mls/hr Infusion: 02/09/17 00:43 Dose: 100 mls/hr Admin: 02/09/17 00:13 Dose: 100 mls/hr Infusion: 02/08/17 18:23 Dose: 100 mls/hr Admin: 02/08/17 17:53 Dose: 100 mls/hr Infusion: 02/08/17 12:55 Dose: 100 mls/hr Admin: 02/08/17 12:25 Dose: 100 mls/hr Infusion: 02/08/17 06:45 Dose: 100 mls/hr Admin: 02/08/17 06:16 Dose: 100 mls/hr Infusion: 02/08/17 01:05 Dose: 100 mls/hr Admin: 02/08/17 00:35 Dose: 100 mls/hr Infusion: 02/07/17 18:04 Dose: 100 mls/hr Admin: 02/07/17 17:34 Dose: 100 mls/hr Infusion: 02/07/17 12:30 Dose: 100 mls/hr Admin: 02/07/17 12:00 Dose: 100 mls/hr Infusion: 02/07/17 06:07 Dose: 100 mls/hr Admin: 02/07/17 05:35 Dose: 100 mls/hr Infusion: 02/07/17 00:59 Dose: 100 mls/hr Admin: 02/07/17 00:29 Dose: 100 mls/hr Infusion: 02/06/17 18:00 Dose: 100 mls/hr Admin: 02/06/17 17:24 Dose: 100 mls/hr Infusion: 02/06/17 13:56 Dose: 100 mls/hr Admin: 02/06/17 13:26 Dose: 100 mls/hr Acetaminophen (Ofirmev) 500 mg in 50 mls @ 100 mls/hr IV Q6HP PRN PRN Reason: PAIN/FEVER > 101 Last Admin: 02/07/17 04:00 Dose: 100 mls/hr Metronidazole (Flagyl) 500 mg in 100 mls @ 100 mls/hr IV Q6H FROILAN Last Infusion: 02/10/17 06:25 Dose: 100 mls/hr Admin: 02/10/17 05:26 Dose: 100 mls/hr Infusion: 02/10/17 01:37 Dose: 100 mls/hr Admin: 02/10/17 00:37 Dose: 100 mls/hr Infusion: 02/09/17 20:09 Dose: 100 mls/hr Admin: 02/09/17 19:09 Dose: 100 mls/hr Infusion: 02/09/17 13:40 Dose: 100 mls/hr Admin: 02/09/17 12:40 Dose: 100 mls/hr Infusion: 02/09/17 07:15 Dose: 100 mls/hr Admin: 02/09/17 06:15 Dose: 100 mls/hr Infusion: 02/09/17 00:10 Dose: 100 mls/hr Admin: 02/08/17 23:10 Dose: 100 mls/hr Infusion: 02/08/17 20:04 Dose: 100 mls/hr Admin: 02/08/17 19:04 Dose: 100 mls/hr Infusion: 02/08/17 14:25 Dose: 100 mls/hr Admin: 02/08/17 13:27 Dose: 100 mls/hr Infusion: 02/08/17 08:00 Dose: 100 mls/hr Admin: 02/08/17 07:00 Dose: 100 mls/hr Infusion: 02/08/17 00:30 Dose: 100 mls/hr Admin: 02/07/17 23:31 Dose: 100 mls/hr Infusion: 02/07/17 19:15 Dose: 100 mls/hr Admin: 02/07/17 18:15 Dose: 100 mls/hr Infusion: 02/07/17 14:09 Dose: 100 mls/hr Admin: 02/07/17 13:09 Dose: 100 mls/hr Infusion: 02/07/17 07:13 Dose: 100 mls/hr Admin: 02/07/17 06:13 Dose: 100 mls/hr Infusion: 02/07/17 02:30 Dose: 100 mls/hr Admin: 02/07/17 01:30 Dose: 100 mls/hr Infusion: 02/06/17 19:03 Dose: 100 mls/hr Admin: 02/06/17 18:03 Dose: 100 mls/hr Infusion: 02/06/17 15:10 Dose: 100 mls/hr Admin: 02/06/17 14:10 Dose: 100 mls/hr Sodium Chloride (Sodium Chloride 0.9%) 1,000 mls @ 125 mls/hr IV .Q8H FROILAN Last Admin: 02/10/17 05:26 Dose: 125 mls/hr Infusion: 02/10/17 03:09 Dose: 125 mls/hr Admin: 02/09/17 22:41 Dose: Admin: 02/09/17 19:09 Dose: 125 mls/hr Infusion: 02/09/17 14:53 Dose: 0 mls/hr Admin: 02/09/17 10:05 Dose: 125 mls/hr Admin: 02/09/17 08:28 Dose: Not Given Infusion: 02/09/17 06:15 Dose: 125 mls/hr Admin: 02/08/17 22:15 Dose: 125 mls/hr Infusion: 02/08/17 19:00 Dose: 125 mls/hr Admin: 02/08/17 14:34 Dose: Not Given Admin: 02/08/17 11:00 Dose: 125 mls/hr Admin: 02/07/17 23:00 Dose: Not Given Admin: 02/07/17 15:15 Dose: Not Given Insulin Human Lispro (Humalog) 0 unit SQ ACHS FROILAN PRN Reason: Protocol Last Admin: 02/10/17 07:45 Dose: Not Given Admin: 02/09/17 20:36 Dose: 6 unit Admin: 02/09/17 17:42 Dose: 2 unit Admin: 02/09/17 12:00 Dose: 2 unit Admin: 02/09/17 08:27 Dose: Not Given Admin: 02/08/17 20:26 Dose: Not Given Admin: 02/08/17 17:28 Dose: Not Given Admin: 02/08/17 11:49 Dose: Not Given Admin: 02/08/17 08:07 Dose: Not Given Admin: 02/07/17 20:34 Dose: Not Given Admin: 02/07/17 17:09 Dose: Not Given Admin: 02/07/17 11:31 Dose: Not Given Admin: 02/07/17 07:57 Dose: 2 unit Admin: 02/06/17 20:36 Dose: 4 unit Admin: 02/06/17 17:09 Dose: Not Given Sodium Chloride (Saline Flush) 10 ml IV Q8 [facility] Last Admin: 02/10/17 05:26 Dose: 10 ml Admin: 02/09/17 22:41 Dose: Not Given Admin: 02/09/17 12:40 Dose: Not Given Admin: 02/09/17 05:29 Dose: Not Given Admin: 02/08/17 20:27 Dose: Not Given Admin: 02/08/17 14:34 Dose: Not Given Admin: 02/08/17 06:17 Dose: Not Given Admin: 02/07/17 20:34 Dose: Not Given Admin: 02/07/17 14:19 Dose: Not Given Admin: 02/07/17 05:35 Dose: Not Given Admin: 02/06/17 20:36 Dose: Not Given Admin: 02/06/17 14:10 Dose: Not Given Admin: 02/06/17 06:06 Dose: Not Given Shift Summary 02/10/17 02:48 Shift Summary by Azam Paulino Addendum entered by Zafar Hercules 02/10/17 04:19: possible d/c home today with family and f/u appt. for CT after discharge, no orders entered thus far Original Note: Patient Up to BSC several times - TX's stable w/ SBA - asst w/ nolber[facility] & attends. She is incont. of stool, and occasionally of urine as well due to urgency. She has had several liq. Bm's, as well as voiding per BSC. IV to her RT wrist saline locked after K+Phos infusion. IV to her RT F/A infusing NS @ 125ml/hr. HS blood sugar was 223 - coverage provided. VS - WNL on R.A.. She is calm, pleasant, & cooperative. Initialized on 02/10/17 02:48 - END OF NOTE
== END 2017-02-10 13:30 | disposition home or self-care (01) | DRG 392 ==
LOC: ED 19:15 → MEDSUR 23:38
PROVIDERS: ADMIT Family Medicine Adult Medicine; ATTEND Family Medicine Adult Medicine